=== PATIENT | female | born 1980 ===

== ENCOUNTER 2023-08-14 19:52 | Outpatient (REF) | payer BC, SELFPAY ==
[2023-08-14 16:07] LABS: Abs Immature Grans 0.02 10^3/uL (0.0-0.06); Absolute Basophil Count 0.06 10^3/uL (0.0-0.2); Absolute Eosinophil Count 0.24 10^3/uL (0.0-0.7); Absolute Lymphocyte Count 1.96 10^3/uL (1.2-3.4); Absolute Monocyte Count 0.46 10^3/uL (0.1-0.8); Absolute Neutrophil Count 5.74 10^3/uL (1.2-6.7); Basophils % 0.7; Eosinophils % 2.8; HCT 43.2 % (36.0-46.0); HGB 14.4 g/dL (11.2-15.7); Immature Grans % 0.2; Lymphocytes % 23.1; MCH 31.3 pg (27.0-33.0); MCHC 33.3 % (32.0-36.0); MCV 94 fL (80-95); MPV 10.9 fL (8.0-11.0); Monocytes % 5.4; Neutrophils % 67.8; Platelet Count 354 10^3/uL (130-400); RDW 12.5 % (11.7-14.6); RDW-SD 43.3 fL; WBC 8.48 10^3/uL (4.4-10.8)
[2023-08-14 16:36] LABS: ALT 20 U/L (14-59); AST 16 U/L (15-37); Alkaline Phosphatase 43 U/L (46-116); Anion Gap 8.9 mmol/L (3-11); BUN 13 mg/dL (7-18); Bilirubin, Total 0.4 mg/dL (0.2-1.0); CO2 24.1 mmol/L (21.0-32.0); CREATININE 0.9 mg/dL (0.55-1.02); Calcium 9.6 mg/dL (8.5-10.1); Chloride 104 mmol/L (98-107); Estimated GFR 80.84 (mL/min/1.73m2); Glucose 101 mg/dL (74-106); Potassium 4.3 mmol/L (3.5-5.1); Sodium 137 mmol/L (136-145); TSH (W/Ref FT4) 1.56 uIU/mL (0.36-3.74); Total Protein 7.1 g/dL (6.4-8.2)
== END 2023-08-14 19:53 | disposition home or self-care (01) ==
LOC: NCHCN 19:52
PROVIDERS: Visit Provider Family Medicine
DX: N95.1 Menopausal and female climacteric states (principal); D50.9 Iron deficiency anemia, unspecified; R63.4 Abnormal weight loss
CPT/HCPCS: 80053; 84443; 85025

== ENCOUNTER 2023-12-14 12:15 | Outpatient (REF) | payer BC, SELFPAY ==
--- NOTE | 2023-12-13 13:50 | PAPFT_PTH ---
PATIENT: Halie Acevedo LOC: [facility]#:[id number] AGE/SX: 43/F ROOM: RE12/14/[address]: Stefania Ellis : 1980 BED: DIS: 12/14/2023 SPEC #: [id number] RECD: 12/14/23 13:11 STATUS: EDDYJuan C CASTANEDA #: [id number] [place]: 12/13/23 13:[address]: Stefania Ellis DEPT: [facility] Cytology RECD BY: Paty Zhong ENTERED: 12/14/23 13:11 SP TYPE: PAPFT MANJIT DR: Unknown,Unknown Tissues: 1 - CX/ENDOCX FOR PAP SMEARS Procedures: PAP THIN PREP/[facility] Screening HPV DNA PROBE Comments: [id number]
== END 2023-12-14 12:16 | disposition home or self-care (01) ==
LOC: NCHCN 12:15
PROVIDERS: Visit Provider Family Medicine
DX: Z00.00 Encounter for general adult medical examination without abnormal findings (principal); Z12.4 Encounter for screening for malignant neoplasm of cervix
CPT/HCPCS: 88142; 87624